=== PATIENT | female | born 1985 ===

== ENCOUNTER 2018-02-26 18:28 | Inpatient (IN) ==
[2018-02-26] MEDS ORDERED: ONDANSETRON 4 MG/2 ML VIAL IV PRN ×2 (18:50→20:32)
[2018-02-26] MEDS ORDERED: MEPERIDINE 50 MG/1 ML VIAL IV PRN (18:50)
[2018-02-26] MEDS ORDERED: LACTATED RINGERS 500 ML IV PRN (18:50)
[2018-02-26] MEDS ORDERED: LACTATED RINGERS 1,000 ML IV SCH (19:00)
[2018-02-26] MEDS ORDERED: CITRIC ACID/SODIUM CITRATE 30 ML UDCUP PO ONE (19:05)
[2018-02-26] MEDS ORDERED: diphenhydrAMINE 50 MG/1 ML VIAL IV PRN (19:05)
[2018-02-26] MEDS ORDERED: NALOXONE 0.4 MG/ML VIAL IV PRN (19:05)
[2018-02-26] MEDS ORDERED: LACTATED RINGERS 1,000 ML IV ONE (19:05)
[2018-02-26] MEDS ORDERED: hydrOXYzine HCL 25 MG/1 ML VIAL IM PRN (19:05)
[2018-02-26] MEDS ORDERED: FAMOTIDINE 20 MG/2 ML VIAL IV ONE (19:05)
[2018-02-26] MEDS ORDERED: ePHEDrine 50 MG/ML AMP IV PRN (19:05)
[2018-02-26] MEDS ORDERED: PROMETHAZINE 25 MG/1 ML VIAL IM ONE (19:05)
[2018-02-26] MEDS ORDERED: OXYTOCIN/LR 30 UNIT/1,000 ML BAG IV PRN (19:09)
[2018-02-26] MEDS ORDERED: fentaNYL 2 MCG/ROPIV 0.2% EPID 100 ML EPIDURAL SCH (19:30)
[2018-02-26] MEDS ORDERED: METHYLERGONOVINE 0.2 MG/1 ML AMP ONE (19:40)
[2018-02-26] MEDS ORDERED: miSOPROStol 200 MCG TABLET ONE (19:40)
[2018-02-26] MEDS ORDERED: LIDOCAINE 1% 50 ML VIAL ONE (19:40)
[2018-02-26] MEDS ORDERED: CARBOPROST TROMETHAMINE 250 MCG/ML AMP IM ONE (19:41)
[2018-02-26] MEDS ORDERED: INFLUENZA VIRUS VACCINE 0.5 ML SYRINGE IM ONE (19:46)
[2018-02-26 19:54] LABS: Basophils # 0.1 10*3/uL (0.0-0.2); Basophils % 0.7 % (0.0-0.8); Eosinophils % 0.3 % (0.00-10.9); Hematocrit 30.8 VOL% (35.7-47.0); Hemoglobin 9.5 GM/DL (12.0-16.0); Immature Granulocytes % 0.7 %; Immature Granulocytes Absolute 0.05 #; Lymphocytes # 1.5 10*3/uL (1.4-4.0); Lymphocytes % 19.9 % (21.3-54.2); Mean Corpuscular HGB Conc 30.8 GM/DL (32-36); Mean Corpuscular Hemoglobin 26 PG (27-34); Mean Corpuscular Volume 82.8 FL (87-102); Mean Platelet Volume 10.6 FL (9.6-12.0); Monocytes # 0.5 10*3/uL (0.11-0.8); Neutrophils # 5.4 10*3/uL (1.4-7.4); Neutrophils % 71.4 % (38.7-73.9); Platelet Count 387 T/CUMM (130-400); Red Blood Count 3.72 MC/CUMM (3.8-5.5); Red Cell Distribution Width 12.9 % (9.3-17.3); White Blood Count 7.6 T/CUMM (4-12)
[2018-02-26 20:22] LABS: Alanine Aminotransferase 24 U/L (13-56); Albumin 2.1 G/DL (3.4-5.0); Alkaline Phosphatase 291 U/L (45-117); Aspartate Amino Transferase 31 U/L (0-37); Bilirubin,Total < 0.39 MG/DL (0.2-1.0); Blood Urea Nitrogen 7 MG/DL (7-18); Calcium 8.2 MG/DL (8.5-10.1); Glucose 89 MG/DL (74-106); Osmolality,Calculated 269.8 MOS/KG (273-304); Potassium 3.7 MMOL/L (3.5-5.1); Sodium 137 MMOL/L (136-145); Total Protein 6.9 G/DL (6.4-8.3)
[2018-02-26] MEDS ORDERED: ACETAMINOPHEN 325 MG TABLET PO PRN (20:32)
[2018-02-26] MEDS ORDERED: RHO(D) IMMUNE GLOBULIN 300 MCG SYRINGE IM ONE (20:32)
[2018-02-26] MEDS ORDERED: DIPH/TET/ACEL PERT BOOSTER VACCINE 0.5 ML VIAL IM ONE (20:32)
[2018-02-26] MEDS ORDERED: BENZOCAINE 20%/MENTHOL 0.5% SPRAY 56 GM CAN TOP PRN (20:32)
[2018-02-26] MEDS ORDERED: OXYTOCIN/LR 20 UNIT/1,000 ML BAG IV ONE ×3 (20:32→23:00)
[2018-02-26] MEDS ORDERED: BISACODYL 10 MG SUPP RECTAL PRN (20:32)
[2018-02-26] MEDS ORDERED: WITCH HAZEL PADS 100/JAR TOP PRN (20:32)
[2018-02-26] MEDS ORDERED: oxyCODONE/ACETAMINOPHEN 5-325 MG TABLET PO PRN ×2 (20:32)
[2018-02-26] MEDS ORDERED: HYDROCORTISONE 2.5% RECTAL CREAM 30 GM TUBE TOP PRN (20:32)
[2018-02-26] MEDS ORDERED: LANOLIN 50% CREAM 0.3 OZ TUBE TOP PRN (20:32)
[2018-02-26] MEDS ORDERED: MEASLES/MUMPS/RUBELLA VACCINE 0.5 ML VIAL SUBCUT ONE (20:32)
[2018-02-26 20:35] LABS: Cord Arterial Blood HCO3 26.9 MMOL/L
[2018-02-26 20:37] LABS: Cord Venous Blood HCO3 23.7 MMOL/L; Cord Venous Blood PCO2 47.1 MMHG; Cord Venous Blood PO2 29.1
[2018-02-26] MEDS: DOCUSATE SODIUM 100 MG CAPSULE PO SCH (20:47)
[2018-02-26] MEDS: IBUPROFEN 800 MG TABLET PO PRN (20:48)
[2018-02-27 04:12] LABS: Basophils # 0.1 10*3/uL (0.0-0.2); Basophils % 0.4 % (0.0-0.8); Eosinophils % 0.1 % (0.00-10.9); Hemoglobin 9.3 GM/DL (12.0-16.0); Immature Granulocytes % 0.7 %; Immature Granulocytes Absolute 0.08 #; Lymphocytes # 1.8 10*3/uL (1.4-4.0); Lymphocytes % 15.2 % (21.3-54.2); Mean Corpuscular Hemoglobin 26 PG (27-34); Mean Corpuscular Volume 84.3 FL (87-102); Mean Platelet Volume 10.1 FL (9.6-12.0); Monocytes # 0.9 10*3/uL (0.11-0.8); Monocytes % 7.4 % (1.7-12.7); Neutrophils % 76.2 % (38.7-73.9); Platelet Count 352 T/CUMM (130-400); Red Blood Count 3.56 MC/CUMM (3.8-5.5); Red Cell Distribution Width 12.7 % (9.3-17.3); White Blood Count 11.8 T/CUMM (4-12)
[2018-02-27] MEDS: DOCUSATE SODIUM 100 MG CAPSULE PO SCH ×2 (08:43→20:30)
[2018-02-27] MEDS: FLUTICASONE 50 MCG NASAL SPRAY 16 GM BOTTLE BOTH NARES SCH (13:27)
[2018-02-28] MEDS: IBUPROFEN 800 MG TABLET PO PRN (04:15)
[2018-02-28 07:53] VITALS: BP 129/73
[2018-02-28] MEDS: DOCUSATE SODIUM 100 MG CAPSULE PO SCH (09:03)
[2018-02-28] MEDS: FLUTICASONE 50 MCG NASAL SPRAY 16 GM BOTTLE BOTH NARES SCH (09:03)
== END 2018-02-28 13:35 | disposition home or self-care (01) | DRG 807 ==
LOC: EDBD → N.LDOUT 18:28 → N.LD 18:32
PROVIDERS: ADMIT Obstetrics & Gynecology; ATTEND Obstetrics & Gynecology

== ENCOUNTER 2019-05-06 10:47 | Inpatient (IN) ==
[2019-05-06] MEDS ORDERED: MEPERIDINE 50 MG/1 ML VIAL IV PRN (11:03)
[2019-05-06] MEDS ORDERED: BUTORPHANOL 2 MG/ML VIAL IV PRN (11:03)
[2019-05-06] MEDS ORDERED: ONDANSETRON 4 MG/2 ML VIAL IV PRN (11:03)
[2019-05-06] MEDS ORDERED: AMPICILLIN INJ 2,000 MG in SODIUM CHLORIDE 0.9% 100 ML IV ONE (11:11)
[2019-05-06] MEDS ORDERED: AMPICILLIN 2,000 MG VIAL ONE (11:15)
[2019-05-06] MEDS ORDERED: SODIUM CHLORIDE 0.9% 100 ML IV ONE (11:15)
[2019-05-06] MEDS ORDERED: LACTATED RINGERS 1,000 ML IV SCH (11:30)
[2019-05-06] MEDS ORDERED: OXYTOCIN/LR 20 UNIT/1,000 ML BAG IV SCH (11:30)
[2019-05-06 11:32] LABS: Basophils % 0.5 % (0.0-0.8); Eosinophils % 0.1 % (0.00-10.9); Hematocrit 32.9 VOL% (35.7-47.0); Hemoglobin 10.4 GM/DL (12.0-16.0); Immature Granulocytes % 0.9 %; Immature Granulocytes Absolute 0.08 #; Lymphocytes # 2.6 10*3/uL (1.4-4.0); Lymphocytes % 29.8 % (21.3-54.2); Mean Corpuscular HGB Conc 31.6 GM/DL (32-36); Mean Corpuscular Volume 82.5 FL (87-102); Mean Platelet Volume 10.5 FL (9.6-12.0); Monocytes % 6.1 % (1.7-12.7); Neutrophils % 62.6 % (38.7-73.9); Platelet Count 327 T/CUMM (130-400); Red Blood Count 3.99 MC/CUMM (3.8-5.5); Red Cell Distribution Width 14.4 % (9.3-17.3); White Blood Count 8.6 T/CUMM (4-12)
[2019-05-06] MEDS ORDERED: LIDOCAINE 1% 50 ML VIAL ONE (11:47)
[2019-05-06] MEDS ORDERED: miSOPROStoL 200 MCG TABLET ONE (11:47)
[2019-05-06] MEDS ORDERED: oxyCODONE/ACETAMINOPHEN 5-325 MG TABLET PO PRN (15:13)
[2019-05-06] MEDS ORDERED: HYDROCORTISONE 2.5% RECTAL CREAM 30 GM TUBE TOP PRN (15:13)
[2019-05-06] MEDS ORDERED: WITCH HAZEL PADS 100/JAR TOP PRN (15:13)
[2019-05-06] MEDS ORDERED: BENZOCAINE 20%/MENTHOL 0.5% SPRAY 56 GM CAN TOP PRN (15:13)
[2019-05-06] MEDS ORDERED: MEASLES/MUMPS/RUBELLA VACCINE 0.5 ML VIAL SUBCUT ONE (15:13)
[2019-05-06] MEDS ORDERED: ACETAMINOPHEN 325 MG TABLET PO PRN (15:13)
[2019-05-06] MEDS ORDERED: OXYTOCIN/LR 20 UNIT/1,000 ML BAG IV ONE (15:13)
[2019-05-06] MEDS ORDERED: BISACODYL 10 MG SUPP RECTAL PRN (15:13)
[2019-05-06] MEDS ORDERED: RHO(D) IMMUNE GLOBULIN 300 MCG SYRINGE IM ONE (15:13)
[2019-05-06] MEDS ORDERED: DIPH/TET/ACEL PERT BOOSTER VACCINE 0.5 ML VIAL IM ONE (15:13)
[2019-05-06] MEDS ORDERED: LANOLIN 50% CREAM 0.3 OZ TUBE TOP PRN (15:13)
[2019-05-06] MEDS: oxyCODONE/ACETAMINOPHEN 5-325 MG TABLET PO PRN (15:30)
[2019-05-06] MEDS: IBUPROFEN 800 MG TABLET PO PRN (15:30)
[2019-05-06] MEDS: DOCUSATE SODIUM 100 MG CAPSULE PO SCH (21:26)
[2019-05-07] MEDS: oxyCODONE/ACETAMINOPHEN 5-325 MG TABLET PO PRN ×3 (03:43→16:21)
[2019-05-07 05:49] LABS: Basophils # 0.1 10*3/uL (0.0-0.2); Basophils % 0.6 % (0.0-0.8); Eosinophils # 0.1 10*3/uL (0.0-0.87); Eosinophils % 0.7 % (0.00-10.9); Hematocrit 30.8 VOL% (35.7-47.0); Hemoglobin 9.4 GM/DL (12.0-16.0); Immature Granulocytes % 0.6 %; Immature Granulocytes Absolute 0.05 #; Lymphocytes # 2.6 10*3/uL (1.4-4.0); Mean Corpuscular HGB Conc 30.5 GM/DL (32-36); Mean Corpuscular Volume 84.6 FL (87-102); Mean Platelet Volume 10.8 FL (9.6-12.0); Neutrophils % 60.1 % (38.7-73.9); Platelet Count 274 T/CUMM (130-400); Red Blood Count 3.64 MC/CUMM (3.8-5.5); Red Cell Distribution Width 14.3 % (9.3-17.3); White Blood Count 8.4 T/CUMM (4-12)
[2019-05-07] MEDS: IBUPROFEN 800 MG TABLET PO PRN ×2 (08:10→16:20)
[2019-05-07] MEDS: DOCUSATE SODIUM 100 MG CAPSULE PO SCH ×2 (09:44→21:05)
[2019-05-08] MEDS: oxyCODONE/ACETAMINOPHEN 5-325 MG TABLET PO PRN ×2 (00:37→08:23)
[2019-05-08] MEDS: IBUPROFEN 800 MG TABLET PO PRN (08:01)
[2019-05-08] MEDS: DOCUSATE SODIUM 100 MG CAPSULE PO SCH (08:27)
[2019-05-08 08:33] VITALS: BP 147/89
== END 2019-05-08 11:45 | disposition home or self-care (01) | DRG 560 ==
LOC: N.LDOUT 10:47 → N.LD 10:49 → N.OB 15:12
PROVIDERS: ADMIT Obstetrics & Gynecology; ATTEND Obstetrics & Gynecology

== ENCOUNTER 2020-03-15 12:41 | Inpatient (IN) ==
[2020-03-15] MEDS ORDERED: NIFEdipine 10 MG CAPSULE PO ONE (12:55)
[2020-03-15 13:15] LABS: Basophils # 0.1 10*3/uL (0.0-0.2); Eosinophils % 0.2 % (0.00-10.9); Hematocrit 33.5 VOL% (35.7-47.0); Hemoglobin 10.1 GM/DL (12.0-16.0); Immature Granulocytes % 1.8 %; Immature Granulocytes Absolute 0.11 #; Lymphocytes # 1.9 10*3/uL (1.4-4.0); Lymphocytes % 32.4 % (21.3-54.2); Mean Corpuscular HGB Conc 30.1 GM/DL (32-36); Mean Corpuscular Volume 81.9 FL (87-102); Mean Platelet Volume 9.7 FL (9.6-12.0); Neutrophils % 58.6 % (38.7-73.9); Platelet Count 241 T/CUMM (130-400); Red Blood Count 4.09 MC/CUMM (3.8-5.5); Red Cell Distribution Width 15.2 % (9.3-17.3)
[2020-03-15 13:26] LABS: INR 0.8; PT Patient Result 9.2 SECS (9.8-11.9); Partial Thromboplastin Time 28.4 SECS (23.9-33.8)
[2020-03-15] MEDS ORDERED: NIFEdipine 10 MG CAPSULE PO PRN (13:31)
[2020-03-15 13:34] LABS: Albumin 2.2 G/DL (3.4-5.0); Bilirubin,Direct 0.56 MG/DL (0.0-0.20); Bilirubin,Total 0.8 MG/DL (0.2-1.0); Calcium 8.2 MG/DL (8.5-10.1); Potassium 3.9 MMOL/L (3.5-5.1); Total Protein 6.7 G/DL (6.4-8.3); Uric Acid 7.2 MG/DL (2.6-6.0)
[2020-03-15 13:46] LABS: Glucose,Urine (UA) Negative (Negative); Protein,Urine 3+ MG/DL; Urine Appearance Clear (Clear); Urine Color Orange (Yellow)
[2020-03-15 13:47] LABS: Ketones,Urine Negative (Negative)
[2020-03-15 13:48] LABS: Bilirubin,Urine 4 mg/dL (Negative); Blood, Urine Negative (Negative); Nitrite,Urine Negative (Negative)
[2020-03-15] MEDS ORDERED: BUTORPHANOL 2 MG/ML VIAL IV PRN (14:21)
[2020-03-15] MEDS ORDERED: ONDANSETRON 4 MG/2 ML VIAL IV PRN (14:21)
[2020-03-15] MEDS ORDERED: MEPERIDINE 50 MG/1 ML VIAL IV PRN (14:21)
[2020-03-15] MEDS ORDERED: AMPICILLIN INJ 2,000 MG in SODIUM CHLORIDE 0.9% 100 ML IV ONE (14:25)
[2020-03-15] MEDS ORDERED: OXYTOCIN/LR 20 UNIT/1,000 ML BAG IV SCH (14:30)
[2020-03-15] MEDS ORDERED: CITRIC ACID/SODIUM CITRATE 30 ML UDCUP PO ONE (16:07)
[2020-03-15] MEDS ORDERED: ePHEDrine 50 MG/ML VIAL IV PRN (16:07)
[2020-03-15] MEDS ORDERED: hydrOXYzine HCL 25 MG/1 ML VIAL IM PRN (16:07)
[2020-03-15] MEDS ORDERED: FAMOTIDINE 20 MG/2 ML VIAL IV ONE (16:07)
[2020-03-15] MEDS ORDERED: LACTATED RINGERS 1,000 ML IV ONE (16:07)
[2020-03-15] MEDS ORDERED: PROMETHAZINE 25 MG/1 ML VIAL IM ONE (16:07)
[2020-03-15] MEDS ORDERED: diphenhydrAMINE 50 MG/1 ML VIAL IV PRN ×2 (16:07)
[2020-03-15] MEDS ORDERED: NALOXONE 0.4 MG/ML VIAL IV PRN (16:07)
[2020-03-15] MEDS ORDERED: fentaNYL 2 MCG/ROPIV 0.2% EPID 100 ML EPIDURAL SCH (16:30)
[2020-03-15] MEDS ORDERED: MAGNESIUM SULF RIDER 4 GM in PREMIX 1 EACH IV ONE (16:31)
[2020-03-15] MEDS: LACTATED RINGERS 1,000 ML IV SCH (16:31)
[2020-03-15 17:22] LABS: INR 0.9; PT Patient Result 9.3 SECS (9.8-11.9); Partial Thromboplastin Time 28.2 SECS (23.9-33.8)
[2020-03-15] MEDS: MAGNESIUM SULF DRIP 40 GM/1,000 ML ML IV SCH (17:33)
[2020-03-15 17:49] LABS: Barbiturates Screen,Urine Negative (Negative); Benzodiazepines Screen,Urine Negative (Negative); Cannabinoid Screen,Urine Negative (Negative); Opiate Screen,Urine Negative (Negative); Phencyclidine Screen,Urine Negative (Negative)
[2020-03-15] MEDS ORDERED: AMPICILLIN INJ 1,000 MG in SODIUM CHLORIDE 0.9% 100 ML IV SCH (18:30)
[2020-03-15] MEDS ORDERED: hydrALAZINE 20 MG/1 ML VIAL IV ONE ×2 (19:20→21:01)
[2020-03-15] MEDS ORDERED: OXYTOCIN/LR 20 UNIT/1,000 ML BAG IV ONE ×3 (19:46→23:10)
[2020-03-15] MEDS ORDERED: TRANEXAMIC ACID 1,000 MG/10 ML VIAL ONE (19:46)
[2020-03-15] MEDS ORDERED: miSOPROStoL 200 MCG TABLET ONE (19:46)
[2020-03-15] MEDS ORDERED: METHYLERGONOVINE 0.2 MG/1 ML AMP ONE (19:46)
[2020-03-15] MEDS ORDERED: SODIUM CHLORIDE 0.9% 0 ML IV ONE (19:47)
[2020-03-15] MEDS ORDERED: LIDOCAINE 1% 50 ML VIAL ONE (19:47)
[2020-03-15] MEDS ORDERED: CARBOPROST TROMETHAMINE 250 MCG/ML AMP IM ONE (19:47)
[2020-03-15 20:18] LABS: Cord Venous Blood HCO3 21.4 MMOL/L; Cord Venous Blood PCO2 47.5 MMHG; Cord Venous Blood PO2 19.2
[2020-03-15] MEDS ORDERED: IBUPROFEN 100 MG/5 ML UDCUP PO ONE (21:10)
[2020-03-15 21:23] LABS: HIV Antigen/Antibody Result Nonreactive (Nonreactive); Rubella Antibody IgG Result Non-Reactive (NonReactive)
[2020-03-15] MEDS: LABETALOL 200 MG TABLET PO SCH ×2 (21:44→21:46)
[2020-03-15] MEDS: SUMAtriptan 25 MG TABLET PO SCH (23:05)
[2020-03-15] MEDS: BUTALBITAL/ACETAMIN/CAFFEINE 50-325-40 MG TABLET PO SCH (23:05)
[2020-03-16] MEDS: LACTATED RINGERS 1,000 ML IV SCH ×2 (00:13→14:42)
[2020-03-16] MEDS: LABETALOL 100 MG/20 ML VIAL IV PRN ×3 (00:26→05:17)
[2020-03-16] MEDS: BUTALBITAL/ACETAMIN/CAFFEINE 50-325-40 MG TABLET PO SCH ×4 (05:09→21:08)
[2020-03-16 06:24] LABS: Basophils % 0.3 % (0.0-0.8); Hematocrit 26.2 VOL% (35.7-47.0); Hemoglobin 8.3 GM/DL (12.0-16.0); Immature Granulocytes % 4.5 %; Immature Granulocytes Absolute 0.54 #; Lymphocytes # 1.5 10*3/uL (1.4-4.0); Lymphocytes % 12.7 % (21.3-54.2); Mean Corpuscular HGB Conc 31.7 GM/DL (32-36); Mean Corpuscular Volume 79.4 FL (87-102); Mean Platelet Volume 10.7 FL (9.6-12.0); Monocytes % 5.6 % (1.7-12.7); Neutrophils % 76.9 % (38.7-73.9); Red Cell Distribution Width 15.9 % (9.3-17.3); White Blood Count 11.9 T/CUMM (4-12)
[2020-03-16 06:27] LABS: Platelet Count 55 T/CUMM (130-400)
[2020-03-16 06:37] LABS: Eosinophils 1 % (0-10); Lymphocytes 14 % (20-55); Platelet Estimate Decreased; Segmented Neutrophils 82 % (50-85); Total Cells Counted 100
[2020-03-16 06:38] LABS: Hypochromasia 1+; Microcytosis 1+
[2020-03-16] MEDS ORDERED: hydrALAZINE 20 MG/1 ML VIAL IV ONE (06:38)
[2020-03-16] MEDS: LABETALOL 200 MG TABLET PO SCH ×4 (06:59→21:08)
[2020-03-16] MEDS: SUMAtriptan 25 MG TABLET PO SCH ×2 (07:18→15:27)
[2020-03-16 10:57] LABS: Bilirubin,Total 3.8 MG/DL (0.2-1.0); Calcium 7.4 MG/DL (8.5-10.1); Osmolality,Calculated 269.1 MOS/KG (273-304); Potassium 4.2 MMOL/L (3.5-5.1); Total Protein 5.3 G/DL (6.4-8.3)
[2020-03-16 11:12] LABS: Albumin 1.8 G/DL (3.4-5.0); Bilirubin,Total 2.5 MG/DL (0.2-1.0); Calcium 6.7 MG/DL (8.5-10.1); Osmolality,Calculated 260.7 MOS/KG (273-304); Potassium 4.1 MMOL/L (3.5-5.1); Total Protein 5.4 G/DL (6.4-8.3)
[2020-03-16 14:16] LABS: Basophils % 0.3 % (0.0-0.8); Eosinophils % 0.1 % (0.00-10.9); Hematocrit 22.6 VOL% (35.7-47.0); Hemoglobin 7.1 GM/DL (12.0-16.0); Immature Granulocytes % 3.4 %; Immature Granulocytes Absolute 0.32 #; Lymphocytes # 1.4 10*3/uL (1.4-4.0); Lymphocytes % 15.1 % (21.3-54.2); Mean Corpuscular HGB Conc 31.4 GM/DL (32-36); Mean Corpuscular Volume 80.7 FL (87-102); Mean Platelet Volume 11.5 FL (9.6-12.0); Monocytes % 5.6 % (1.7-12.7); Neutrophils % 75.5 % (38.7-73.9); Platelet Count 62 T/CUMM (130-400); Red Cell Distribution Width 15.9 % (9.3-17.3); White Blood Count 9.5 T/CUMM (4-12)
[2020-03-16 14:37] LABS: Albumin 1.6 G/DL (3.4-5.0); Bilirubin,Total 1.6 MG/DL (0.2-1.0); Calcium 6.2 MG/DL (8.5-10.1); Osmolality,Calculated 265.4 MOS/KG (273-304); Potassium 3.8 MMOL/L (3.5-5.1)
[2020-03-16] MEDS: MAGNESIUM SULF DRIP 40 GM/1,000 ML ML IV SCH (14:41)
[2020-03-16 14:51] LABS: INR 0.9; PT Patient Result 9.8 SECS (9.8-11.9); Partial Thromboplastin Time 28.5 SECS (23.9-33.8)
[2020-03-16] MEDS ORDERED: MAGNESIUM SULF DRIP 40 GM/1,000 ML ML IV SCH (15:00)
[2020-03-16] MEDS: IBUPROFEN 800 MG TABLET PO PRN (21:33)
[2020-03-16 22:38] LABS: Basophils % 0.3 % (0.0-0.8); Eosinophils % 0.1 % (0.00-10.9); Hematocrit 24.4 VOL% (35.7-47.0); Hemoglobin 7.2 GM/DL (12.0-16.0); Immature Granulocytes % 2.6 %; Lymphocytes # 1.7 10*3/uL (1.4-4.0); Mean Corpuscular HGB Conc 29.5 GM/DL (32-36); Mean Corpuscular Volume 82.7 FL (87-102); Mean Platelet Volume 10.7 FL (9.6-12.0); Monocytes % 4.5 % (1.7-12.7); Neutrophils % 70.5 % (38.7-73.9); Red Blood Count 2.95 MC/CUMM (3.8-5.5); Red Cell Distribution Width 15.9 % (9.3-17.3); White Blood Count 7.6 T/CUMM (4-12)
[2020-03-16 22:39] LABS: Platelet Count 79 T/CUMM (130-400)
[2020-03-16 22:52] LABS: Albumin 1.9 G/DL (3.4-5.0); Calcium 6.1 MG/DL (8.5-10.1); Osmolality,Calculated 274.5 MOS/KG (273-304); Potassium 4.2 MMOL/L (3.5-5.1); Total Protein 5.4 G/DL (6.4-8.3)
[2020-03-16 22:53] LABS: INR 0.9; PT Patient Result 9.4 SECS (9.8-11.9); Partial Thromboplastin Time 27.8 SECS (23.9-33.8)
[2020-03-16] MEDS: oxyCODONE/ACETAMINOPHEN 5-325 MG TABLET PO PRN (23:04)
[2020-03-17] MEDS: LACTATED RINGERS 1,000 ML IV SCH (02:37)
[2020-03-17 03:26] LABS: Hypochromasia 2+; Platelet Estimate Decreased; Polychromasia Few
[2020-03-17 06:03] LABS: Basophils % 0.6 % (0.0-0.8); Eosinophils % 0.3 % (0.00-10.9); Hematocrit 20.9 VOL% (35.7-47.0); Lymphocytes # 1.8 10*3/uL (1.4-4.0); Lymphocytes % 26.5 % (21.3-54.2); Mean Corpuscular HGB Conc 30.1 GM/DL (32-36); Mean Corpuscular Volume 83.6 FL (87-102); Mean Platelet Volume 11.6 FL (9.6-12.0); Monocytes % 6.1 % (1.7-12.7); Neutrophils % 63.5 % (38.7-73.9); Platelet Count 86 T/CUMM (130-400); White Blood Count 6.7 T/CUMM (4-12)
[2020-03-17 06:07] LABS: Hemoglobin 6.3 GM/DL (12.0-16.0)
[2020-03-17 06:19] LABS: Albumin 1.7 G/DL (3.4-5.0); Bilirubin,Total 0.8 MG/DL (0.2-1.0); Calcium 6.1 MG/DL (8.5-10.1); Osmolality,Calculated 272.7 MOS/KG (273-304); Potassium 3.9 MMOL/L (3.5-5.1); Total Protein 4.9 G/DL (6.4-8.3)
[2020-03-17 06:23] LABS: INR 0.9; PT Patient Result 9.5 SECS (9.8-11.9); Partial Thromboplastin Time 26.3 SECS (23.9-33.8)
[2020-03-17 06:59] LABS: Band Neutrophils 2 % (0-10); Eosinophils 1 % (0-10); Hypochromasia 1+; Lymphocytes 22 % (20-55); Microcytosis 1+; Nucleated Red Blood Cells 1 (0-5); Polychromasia Slight; Segmented Neutrophils 70 % (50-85); Total Cells Counted 100
[2020-03-17 07:00] LABS: Platelet Estimate Decreased
[2020-03-17] MEDS: LABETALOL 200 MG TABLET PO SCH ×3 (09:24→21:02)
[2020-03-17] MEDS: IBUPROFEN 800 MG TABLET PO PRN ×2 (09:45→23:47)
[2020-03-17] MEDS: FERROUS GLUCONATE 324 MG TABLET PO SCH ×2 (11:11→18:53)
[2020-03-17 14:00] LABS: Basophils % 0.3 % (0.0-0.8); Eosinophils % 0.6 % (0.00-10.9); Hematocrit 21.8 VOL% (35.7-47.0); Immature Granulocytes Absolute 0.19 #; Lymphocytes # 1.8 10*3/uL (1.4-4.0); Lymphocytes % 27.4 % (21.3-54.2); Mean Corpuscular HGB Conc 29.4 GM/DL (32-36); Mean Corpuscular Volume 84.8 FL (87-102); Mean Platelet Volume 10.3 FL (9.6-12.0); Monocytes % 6.4 % (1.7-12.7); Neutrophils % 62.3 % (38.7-73.9); Platelet Count 106 T/CUMM (130-400); Red Blood Count 2.57 MC/CUMM (3.8-5.5); Red Cell Distribution Width 16.3 % (9.3-17.3); White Blood Count 6.4 T/CUMM (4-12)
[2020-03-17 14:07] LABS: Hemoglobin 6.4 GM/DL (12.0-16.0)
[2020-03-17 14:21] LABS: Albumin 1.7 G/DL (3.4-5.0); Bilirubin,Total 0.6 MG/DL (0.2-1.0); Calcium 6.1 MG/DL (8.5-10.1); Osmolality,Calculated 273.7 MOS/KG (273-304); Potassium 3.8 MMOL/L (3.5-5.1); Total Protein 4.6 G/DL (6.4-8.3)
[2020-03-17 14:34] LABS: INR 0.9; PT Patient Result 9.4 SECS (9.8-11.9); Partial Thromboplastin Time 26.3 SECS (23.9-33.8)
[2020-03-17 14:49] LABS: Band Neutrophils 2 % (0-10); Lymphocytes 28 % (20-55); Metamyelocytes 1 %; Segmented Neutrophils 65 % (50-85); Total Cells Counted 100
[2020-03-17 14:50] LABS: Anisocytosis Slight; Hypochromasia 1+; Microcytosis Slight; Platelet Estimate Adequate; Polychromasia Slight
[2020-03-17] MEDS: oxyCODONE/ACETAMINOPHEN 5-325 MG TABLET PO PRN (16:12)
[2020-03-17] MEDS: DOCUSATE SODIUM 100 MG CAPSULE PO SCH (21:02)
[2020-03-18 06:35] LABS: Basophils % 0.3 % (0.0-0.8); Eosinophils # 0.1 10*3/uL (0.0-0.87); Eosinophils % 0.6 % (0.00-10.9); Hematocrit 22.7 VOL% (35.7-47.0); Hemoglobin 6.7 GM/DL (12.0-16.0); Immature Granulocytes % 3.4 %; Immature Granulocytes Absolute 0.27 #; Lymphocytes # 2.4 10*3/uL (1.4-4.0); Lymphocytes % 30.2 % (21.3-54.2); Mean Corpuscular HGB Conc 29.5 GM/DL (32-36); Mean Platelet Volume 10.5 FL (9.6-12.0); Monocytes % 6.7 % (1.7-12.7); NRBC # 0.03 10*3/uL; Neutrophils % 58.8 % (38.7-73.9); Platelet Count 139 T/CUMM (130-400); Red Blood Count 2.61 MC/CUMM (3.8-5.5); Red Cell Distribution Width 16.8 % (9.3-17.3)
[2020-03-18 06:41] LABS: INR 0.9; PT Patient Result 9.3 SECS (9.8-11.9)
[2020-03-18 06:54] LABS: Albumin 1.7 G/DL (3.4-5.0); Bilirubin,Direct 0.24 MG/DL (0.0-0.20); Bilirubin,Total 0.5 MG/DL (0.2-1.0); Calcium 7.6 MG/DL (8.5-10.1); Osmolality,Calculated 271.7 MOS/KG (273-304); Potassium 3.8 MMOL/L (3.5-5.1); Total Protein 5.1 G/DL (6.4-8.3); Uric Acid 5.3 MG/DL (2.6-6.0)
[2020-03-18 06:59] LABS: Hypochromasia 1+; Lymphocytes 30 % (20-55); Metamyelocytes 1 %; Microcytosis 1+; Myelocytes 1 %; Segmented Neutrophils 66 % (50-85); Total Cells Counted 100
[2020-03-18 07:00] LABS: Platelet Estimate Adequate
[2020-03-18] MEDS: oxyCODONE/ACETAMINOPHEN 5-325 MG TABLET PO PRN ×3 (07:06→23:07)
[2020-03-18] MEDS: IBUPROFEN 800 MG TABLET PO PRN ×2 (07:13→23:09)
[2020-03-18] MEDS: FERROUS GLUCONATE 324 MG TABLET PO SCH ×2 (07:38→17:39)
[2020-03-18] MEDS: LABETALOL 200 MG TABLET PO SCH ×5 (07:38→23:09)
[2020-03-18] MEDS: DOCUSATE SODIUM 100 MG CAPSULE PO SCH ×3 (07:39→21:42)
[2020-03-18] MEDS: hydrALAZINE 20 MG/1 ML VIAL IV PRN (07:52)
[2020-03-19] MEDS ORDERED: LABETALOL 200 MG TABLET PO SCH (04:00)
[2020-03-19 06:14] LABS: Basophils % 0.3 % (0.0-0.8); Eosinophils # 0.1 10*3/uL (0.0-0.87); Eosinophils % 0.6 % (0.00-10.9); Hematocrit 21.9 VOL% (35.7-47.0); Hemoglobin 6.7 GM/DL (12.0-16.0); Immature Granulocytes % 3.8 %; Immature Granulocytes Absolute 0.37 #; Lymphocytes # 2.2 10*3/uL (1.4-4.0); Mean Corpuscular HGB Conc 30.6 GM/DL (32-36); Mean Corpuscular Volume 85.9 FL (87-102); Mean Platelet Volume 9.8 FL (9.6-12.0); NRBC # 0.06 10*3/uL; Neutrophils % 67.3 % (38.7-73.9); Platelet Count 175 T/CUMM (130-400); Red Blood Count 2.55 MC/CUMM (3.8-5.5); Red Cell Distribution Width 17.2 % (9.3-17.3); White Blood Count 9.8 T/CUMM (4-12)
[2020-03-19 06:37] LABS: INR 0.9; PT Patient Result 9.5 SECS (9.8-11.9); Partial Thromboplastin Time 26.2 SECS (23.9-33.8)
[2020-03-19 07:15] LABS: Bilirubin,Total 0.5 MG/DL (0.2-1.0); Calcium 7.8 MG/DL (8.5-10.1); Osmolality,Calculated 269.8 MOS/KG (273-304); Potassium 4.2 MMOL/L (3.5-5.1); Total Protein 5.6 G/DL (6.4-8.3)
[2020-03-19] MEDS: DOCUSATE SODIUM 100 MG CAPSULE PO SCH (08:30)
[2020-03-19] MEDS: FERROUS GLUCONATE 324 MG TABLET PO SCH (08:30)
[2020-03-19] MEDS ORDERED: SODIUM CHLORIDE 0.9% 1,000 ML IV PRN (09:08)
[2020-03-19] MEDS: hydrALAZINE 20 MG/1 ML VIAL IV PRN (13:34)
[2020-03-19] MEDS: IBUPROFEN 800 MG TABLET PO PRN (14:23)
[2020-03-19 16:36] LABS: Hematocrit 30.7 VOL% (35.7-47.0); Hemoglobin 9.1 GM/DL (12.0-16.0)
[2020-03-19 16:42] VITALS: BP 142/90
[2020-03-19] MEDS ORDERED: MEASLES/MUMPS/RUBELLA VACCINE 0.5 ML VIAL SUBCUT ONE ×2 (17:53→18:15)
== END 2020-03-19 18:15 | disposition home or self-care (01) | DRG 560 ==
LOC: N.LDOUT 12:41 → N.LD 12:42 → N.OB 03-19 08:06
PROVIDERS: ADMIT Obstetrics & Gynecology; ATTEND Obstetrics & Gynecology

== ENCOUNTER 2021-08-11 12:43 | Inpatient (IN) ==
[2021-08-11] MEDS ORDERED: ONDANSETRON 4 MG/2 ML VIAL IV PRN ×2 (13:49→18:07)
[2021-08-11] MEDS: LACTATED RINGERS 1,000 ML IV SCH ×3 (14:01→20:49)
[2021-08-11] MEDS: MEPERIDINE 50 MG/1 ML VIAL IV PRN (14:09)
[2021-08-11 14:13] LABS: Basophils % 0.4 % (0.0-0.8); Eosinophils % 0.2 % (0.00-10.9); Hematocrit 28.1 VOL% (35.7-47.0); Hemoglobin 8.4 GM/DL (12.0-16.0); Immature Granulocytes % 0.9 %; Immature Granulocytes Absolute 0.08 #; Lymphocytes # 1.3 10*3/uL (1.4-4.0); Lymphocytes % 14.6 % (21.3-54.2); Mean Corpuscular HGB Conc 29.9 GM/DL (32-36); Mean Corpuscular Volume 77.6 FL (87-102); Mean Platelet Volume 9.8 FL (9.6-12.0); Monocytes # 0.6 10*3/uL (0.11-0.8); Monocytes % 6.1 % (1.7-12.7); Neutrophils % 77.8 % (38.7-73.9); Platelet Count 278 T/CUMM (130-400); Red Blood Count 3.62 MC/CUMM (3.8-5.5); Red Cell Distribution Width 16.7 % (9.3-17.3)
[2021-08-11] MEDS ORDERED: NIFEdipine 10 MG CAPSULE PO ONE ×2 (14:19→14:40)
[2021-08-11 14:23] LABS: INR 0.9; PT Patient Result 9.5 SECS (10.5-12.0); Partial Thromboplastin Time 28.7 SECS (23.7-32.9)
[2021-08-11 14:56] LABS: Albumin 2.3 G/DL (3.4-5.0); Bilirubin,Direct 0.1 MG/DL (0.0-0.20); Bilirubin,Total 0.4 MG/DL (0.20-1.00); Calcium 8.1 MG/DL (8.5-10.1); Osmolality,Calculated 273.8 MOS/KG (273-304); Potassium 4.1 MMOL/L (3.5-5.1); Total Protein 6.6 G/DL (6.4-8.2); Uric Acid 5.9 MG/DL (2.6-6.0)
[2021-08-11 15:45] LABS: Urine Appearance Slightly Cloudy (Clear); Urine Color Dark Yellow (Yellow)
[2021-08-11 15:46] LABS: Bilirubin,Urine Moderate mg/dL (Negative); Blood, Urine Negative (Negative); Glucose,Urine (UA) Negative (Negative); Ketones,Urine 15 mg/dL (Negative); Nitrite,Urine Negative (Negative); Protein,Urine 100 mg/dL (Negative)
[2021-08-11 15:50] LABS: Hyaline Casts,Urine 5 /LPF (0-3); Mucus,Urine Many /LPF (Occasional); Squamous Epithelial Cell,Urine Occasional /HPF (0-10)
[2021-08-11] MEDS ORDERED: LABETALOL 200 MG TABLET PO SCH (17:07)
[2021-08-11] MEDS ORDERED: CITRIC ACID/SODIUM CITRATE 30 ML UDCUP PO ONE (18:05)
[2021-08-11] MEDS ORDERED: hydrOXYzine HCL 25 MG/1 ML VIAL IM PRN (18:05)
[2021-08-11] MEDS ORDERED: PROMETHAZINE 25 MG/1 ML VIAL IM ONE (18:05)
[2021-08-11] MEDS ORDERED: LACTATED RINGERS 250 ML IV PRN (18:05)
[2021-08-11] MEDS ORDERED: LACTATED RINGERS 1,000 ML IV ONE (18:05)
[2021-08-11] MEDS ORDERED: ONDANSETRON 4 MG/2 ML VIAL IV ONE (18:05)
[2021-08-11] MEDS ORDERED: NALOXONE 0.4 MG/ML VIAL IV PRN (18:05)
[2021-08-11] MEDS ORDERED: diphenhydrAMINE 50 MG/1 ML VIAL IV PRN ×2 (18:05)
[2021-08-11] MEDS ORDERED: ePHEDrine 50 MG/ML VIAL IV PRN (18:05)
[2021-08-11] MEDS ORDERED: FAMOTIDINE 20 MG/2 ML VIAL IV ONE (18:05)
[2021-08-11] MEDS ORDERED: CARBOPROST TROMETHAMINE 250 MCG/ML AMP IM PRN (18:07)
[2021-08-11] MEDS ORDERED: OXYTOCIN/LR 20 UNIT/1,000 ML BAG IV ONE (18:07)
[2021-08-11] MEDS ORDERED: TRANEXAMIC ACID 1,000 MG in SODIUM CHLORIDE 0.9% 100 ML IV PRN (18:07)
[2021-08-11] MEDS ORDERED: METHYLERGONOVINE 0.2 MG/1 ML AMP IM PRN (18:07)
[2021-08-11] MEDS ORDERED: miSOPROStoL 200 MCG TABLET RECTAL PRN (18:07)
[2021-08-11] MEDS ORDERED: AMPICILLIN INJ 2,000 MG in SODIUM CHLORIDE 0.9% 100 ML IV ONE (18:41)
[2021-08-11] MEDS: fentaNYL 2 MCG/ROPIV 0.2% EPID 100 ML EPIDURAL SCH (18:51)
[2021-08-11] MEDS ORDERED: OXYTOCIN/LR 30 UNIT/1,000 ML BAG IV ONE (21:02)
[2021-08-11 21:03] LABS: Mucus,Urine Occasional /LPF (Occasional); RBC,Urine <1 /HPF (0-4); Squamous Epithelial Cell,Urine Occasional /HPF (0-10)
[2021-08-11 21:04] LABS: Bilirubin,Urine Negative (Negative); Blood, Urine Negative (Negative); Glucose,Urine (UA) Negative (Negative); Ketones,Urine Negative (Negative); Nitrite,Urine Negative (Negative); Protein,Urine Negative (Negative); Urine Appearance Clear (Clear); Urine Color Yellow (Yellow)
[2021-08-11] MEDS: AMPICILLIN INJ 1,000 MG in SODIUM CHLORIDE 0.9% 100 ML IV SCH (23:14)
[2021-08-12] MEDS: MEPERIDINE 50 MG/1 ML VIAL IV PRN (02:02)
[2021-08-12] MEDS: fentaNYL 2 MCG/ROPIV 0.2% EPID 100 ML EPIDURAL SCH (02:21)
[2021-08-12] MEDS: AMPICILLIN INJ 1,000 MG in SODIUM CHLORIDE 0.9% 100 ML IV SCH (03:50)
[2021-08-12] MEDS ORDERED: miSOPROStoL 200 MCG TABLET ONE (04:25)
[2021-08-12] MEDS ORDERED: TRANEXAMIC ACID 1,000 MG/10 ML VIAL ONE (04:25)
[2021-08-12] MEDS ORDERED: METHYLERGONOVINE 0.2 MG/1 ML AMP ONE (04:26)
[2021-08-12] MEDS ORDERED: CARBOPROST TROMETHAMINE 250 MCG/ML AMP IM ONE (04:26)
[2021-08-12] MEDS ORDERED: OXYTOCIN/LR 20 UNIT/1,000 ML BAG IV ONE (04:52)
[2021-08-12] MEDS ORDERED: BENZOCAINE 20%/MENTHOL 0.5% SPRAY 56 GM CAN TOP PRN (04:52)
[2021-08-12] MEDS ORDERED: WITCH HAZEL PADS 100/JAR TOP PRN (04:52)
[2021-08-12] MEDS ORDERED: MEASLES/MUMPS/RUBELLA VACCINE 0.5 ML VIAL SUBCUT ONE (04:52)
[2021-08-12] MEDS ORDERED: RHO(D) IMMUNE GLOBULIN 300 MCG SYRINGE IM ONE (04:52)
[2021-08-12] MEDS ORDERED: oxyCODONE/ACETAMINOPHEN 5-325 MG TABLET PO PRN (04:52)
[2021-08-12] MEDS ORDERED: BISACODYL 10 MG SUPP RECTAL PRN (04:52)
[2021-08-12] MEDS ORDERED: ACETAMINOPHEN 325 MG TABLET PO PRN (04:52)
[2021-08-12] MEDS ORDERED: ONDANSETRON 4 MG/2 ML VIAL IV PRN (04:52)
[2021-08-12] MEDS ORDERED: HYDROCORTISONE 2.5% RECTAL CREAM 30 GM TUBE TOP PRN (04:52)
[2021-08-12] MEDS ORDERED: DIPH/TET/ACEL PERT BOOSTER VACCINE 0.5 ML VIAL IM ONE (04:52)
[2021-08-12] MEDS ORDERED: LANOLIN 50% CREAM 0.3 OZ TUBE TOP PRN (04:52)
[2021-08-12 05:03] LABS: Cord Venous Blood HCO3 22.1 MMOL/L; Cord Venous Blood PCO2 52.6 MMHG; Cord Venous Blood PO2 20.7
[2021-08-12] MEDS ORDERED: OXYTOCIN/LR 20 UNIT/1,000 ML BAG IV SCH (06:00)
[2021-08-12] MEDS ORDERED: NIFEdipine 10 MG CAPSULE PO PRN (07:35)
[2021-08-12] MEDS: DOCUSATE SODIUM 100 MG CAPSULE PO SCH ×2 (10:14→21:04)
[2021-08-12] MEDS: IBUPROFEN 800 MG TABLET PO PRN ×2 (12:46→21:04)
[2021-08-13] MEDS: IBUPROFEN 800 MG TABLET PO PRN ×3 (04:18→20:02)
[2021-08-13 05:04] LABS: Basophils % 0.4 % (0.0-0.8); Eosinophils # 0.1 10*3/uL (0.0-0.87); Eosinophils % 0.8 % (0.00-10.9); Hematocrit 22.4 VOL% (35.7-47.0); Hemoglobin 6.6 GM/DL (12.0-16.0); Immature Granulocytes % 1.5 %; Immature Granulocytes Absolute 0.13 #; Lymphocytes # 1.9 10*3/uL (1.4-4.0); Lymphocytes % 20.9 % (21.3-54.2); Mean Corpuscular HGB Conc 29.5 GM/DL (32-36); Mean Platelet Volume 9.8 FL (9.6-12.0); Monocytes # 0.6 10*3/uL (0.11-0.8); Monocytes % 6.9 % (1.7-12.7); Neutrophils % 69.5 % (38.7-73.9); Platelet Count 214 T/CUMM (130-400); Red Blood Count 2.91 MC/CUMM (3.8-5.5); Red Cell Distribution Width 17.2 % (9.3-17.3); White Blood Count 8.9 T/CUMM (4-12)
[2021-08-13] MEDS: oxyCODONE/ACETAMINOPHEN 5-325 MG TABLET PO PRN ×2 (05:46→11:13)
[2021-08-13] MEDS ORDERED: SODIUM CHLORIDE 0.9% 1,000 ML IV PRN (06:24)
[2021-08-13] MEDS: SODIUM CHLORIDE 0.9% 1,000 ML IV PRN ×2 (07:41→10:48)
[2021-08-13] MEDS: DOCUSATE SODIUM 100 MG CAPSULE PO SCH ×2 (09:09→21:14)
[2021-08-13] MEDS: FERROUS SULFATE 325 MG TABLET PO SCH ×2 (11:11→21:14)
[2021-08-13 16:44] LABS: Hematocrit 29.1 VOL% (35.7-47.0); Hemoglobin 9.1 GM/DL (12.0-16.0)
[2021-08-14] MEDS: FERROUS SULFATE 325 MG TABLET PO SCH (08:35)
[2021-08-14] MEDS: DOCUSATE SODIUM 100 MG CAPSULE PO SCH (08:36)
[2021-08-14] MEDS: oxyCODONE/ACETAMINOPHEN 5-325 MG TABLET PO PRN (08:37)
[2021-08-14] MEDS ORDERED: NIFEdipine 10 MG CAPSULE PO ONE (09:23)
[2021-08-14] MEDS ORDERED: FUROSEMIDE 20 MG TABLET PO SCH (09:30)
[2021-08-14 16:34] VITALS: BP 139/85
== END 2021-08-14 17:10 | disposition home or self-care (01) | DRG 560 ==
LOC: N.LDOUT 12:43 → N.LD 12:43 → N.OB 08-12 09:12
PROVIDERS: ADMIT Obstetrics & Gynecology; ATTEND Obstetrics & Gynecology